=== PATIENT | female | born 1990 | race Two or more races ===

== ENCOUNTER 2019-05-27 06:16 | Inpatient (IN) | payer SELFPAY ==
[~2019-05-27] VITALS: Ht 160 cm; Wt 69.4 kg
--- NOTE | 2019-05-27 06:40 | NUR ---
PT BIBRA PER EMS PT STATES TAKING "TEQUILA SHOTS AND EATING ULISES IN THE BOX " PT ALTERED AND ANXIOUS.
--- NOTE | 2019-05-27 06:40 | NUR ---
AT THE BED SIDE
[2019-05-27] MEDS ORDERED: OLANZAPINE 5 MG TABLET ONE (06:51)
[2019-05-27] MEDS ORDERED: OLANZAPINE 5 MG TABLET PO ONE (07:00)
[2019-05-27 07:18] LABS: BASOPHILS % (AUTO) 0.5 % (0.0-2.0); EOSINOPHILS % (AUTO) 0.2 % (0.0-6.0); HEMATOCRIT 44 % (33-45); HEMOGLOBIN 14.5 g/dL (11.5-14.8); LYMPHOCYTES # (AUTO) 0.9 /CMM (0.8-4.8); LYMPHOCYTES % (AUTO) 19.7 % (20.0-44.0); MEAN CORPUSCULAR HGB CONC 33 g/dl (31.0-36.0); MEAN CORPUSCULAR VOLUME 96 fL (82-100); MONOCYTES # (AUTO) 0.2 /CMM (0.1-1.30); MONOCYTES % (AUTO) 4.7 % (2.0-12.0); NEUTROPHILS # (AUTO) 3.6 /CMM (1.8-8.9); NEUTROPHILS % (AUTO) 74.9 % (43.0-81.0); PLATELET COUNT (AUTO) 225 /CMM (150-450); RED BLOOD CELL COUNT(AUTO) 4.57 MIL/uL (4.0-5.2); WHITE BLOOD COUNT (AUTO) 4.8 K/uL (4.3-11.0)
[2019-05-27 07:24] LABS: CALCIUM, SERUM 9.8 mg/dL (8.5-10.1); CARBON DIOXIDE 21 mmol/L (21-32); CHLORIDE 99 mmol/L (98-107); CREATININE 0.9 mg/dL (0.6-1.3); GLUCOSE 151 mg/dL (74-106); SODIUM SERUM 136 mmol/L (136-145); UREA NITROGEN, BLOOD 13 mg/dL (7-18)
--- NOTE | 2019-05-27 07:28 | NUR ---
KIMBERLY COLLECTED AND SENT TO THE LAB
--- NOTE | 2019-05-27 07:30 | NUR ---
REPORT RECEIVED FROM BEAU STEPHENS FOR NARCISO
[2019-05-27 07:32] LABS: ALANINE AMINOTRANSFERASE 19 U/L (12-78); ALBUMIN 4.5 g/dL (3.4-5.0); ALKALINE PHOSPHATASE 71 U/L (46-116); ASPARTATE AMINOTRANSFERASE 25 U/L (15-37); BILIRUBIN,DIRECT 0.2 mg/dL (0.0-0.2); BILIRUBIN,TOTAL 0.9 mg/dL (0.2-1.0); TOTAL PROTEIN, SERUM 8.9 g/dL (6.4-8.2)
[2019-05-27 07:35] LABS: ACETAMINOPHEN 0 ug/ml (10-30); ALCOHOL, BLOOD < 3 mg/dL (0-0); SALICYLATE 0.5 mg/dL (2.8-20.0)
--- NOTE | 2019-05-27 07:42 | NUR ---
WITNESSED TONIC-CLONIC SEIZURE LASTED APPROXIMATELY 40SEC, MADE MD AWARE, SEIZURE PRECAUTION APPLIED.
[2019-05-27 07:51] LABS: APPEARANCE,URINE Clear (CLEAR); BILIRUBIN,URINE Negative (NEGATIVE); BLOOD, URINE Trace-intact Ery/uL (NEGATIVE); COLOR,URINE Yellow (YELLOW); KETONES,URINE 40 (NEGATIVE); LEUKOCYTE ESTERASE ,URINE Negative (NEGATIVE); NITRITE, URINE Negative (NEGATIVE); PH,URINE 8.5 (5.0-8.0); PROTEIN,URINE Negative (NEGATIVE); UGLUCOSE Negative (NEGATIVE); UROBILINOGEN,URINE 0.2 EU/dL (0.2)
[2019-05-27 07:53] LABS: BACTERIA,URINE Few /HPF (None Seen); SQUAMOUS EPITHELIAL CELL,UR Few /HPF (None Seen); WBC,URINE 0-2 /HPF (0-3)
[2019-05-27] MEDS ORDERED: LORAZEPAM INJ 2 MG/ML VIAL ONE (07:59)
[2019-05-27] MEDS ORDERED: HYDROCODONE/APAP 5/325MG 1 EACH TABLET PO ONE (08:00)
--- NOTE | 2019-05-27 08:05 | NUR ---
Pt bed assigned to 112-1 per House jesse Shook
[2019-05-27] MEDS ORDERED: LEVETIRACETAM (500MG) 500 MG in IV NS 0.9% 100 ML IV ONE (08:30)
--- NOTE | 2019-05-27 08:50 | NUR ---
REPORT GIVEN TO ADAM STEPHENS
--- NOTE | 2019-05-27 08:50 | NUR ---
TD/RN REPORT FROM ER REPORT GIVEN FROM ER NURSE MORTEZA FOR PT WITH PENDING DIAGNOSIS, UNDER THE CARE OF Rehan SEYMOUR NP. AWAITING FOR PT'S ADMITTING DIAGNOSIS AND ARRIVAL.
--- NOTE | 2019-05-27 09:20 | NUR ---
PANEL OIL LABORATORY ANALYST PAGED
[2019-05-27] MEDS ORDERED: LORAZEPAM INJ 2 MG/ML VIAL IV PRN (10:00)
[2019-05-27] MEDS ORDERED: MAGNESIUM HYDROXIDE 30 ML UDC PO PRN (10:00)
[2019-05-27] MEDS ORDERED: ACETAMINOPHEN 325 MG TABLET PO PRN (10:00)
[2019-05-27] MEDS ORDERED: MAG HYDROX/AL HYDROX/SIMETH 30 ML UDC PO PRN (10:00)
[2019-05-27] MEDS ORDERED: ONDANSETRON HCL/PF 4 MG/2 ML VIAL IVP PRN (10:00)
[2019-05-27] MEDS ORDERED: Z GUARD REMEDY 2 OZ OINT TP PRN (10:00)
--- NOTE | 2019-05-27 10:15 | NUR ---
TD/BUSINESS OPERATIONS COORDINATOR - ROOM 112#1 PT ARRIVED VIA GURNEY ACCOMPANIED BY ER NURSE AND WIND FARM ENGINEER. PT ALERT X 2-3 BUT NOTED WITH CONFUSION, SLEEPY BUT ABLE TO ENGAGED IN CONVERSATION. ON ROOM AIR SATURATING WELL @ 99%, RESPIRATIONS EVEN & UNLABORED, ON TELE WITH SINUS RHYTHM, HR 76. IV SITE FLUSHED PATENT, SL. SANTOS CATHETER INTACT, NOTED WITH CLEAR YELLOW URINE OUTPUT. BED RAIL PADDING IN PLACED, PT IS COMFORTABLE, ORIENTED TO HER SURROUNDINGS. PT REFUSED BED BATH. AWAITING FOR ORDERS. ADMITTING PROTOCOLS ON GOING, CL WITHIN REACHED AND SAFETY MAINTAINED. MONITORING CONTINUED.
[2019-05-27 12:00] VITALS: BP 145/80
[2019-05-27] MEDS: IV NS 0.9% 1,000 ML IV PRN (12:52)
[2019-05-27] MEDS: POTASSIUM CL. PREMIX PERIPHER. 50 ML IV SCH ×6 (12:52→23:42)
[2019-05-27] MEDS: ENOXAPARIN SODIUM 40 MG/0.4 ML DISP.SYRIN SQ SCH (12:53)
--- NOTE | 2019-05-27 13:00 | NUR ---
TD/RN MISSING BACKPACK PT WORRIED ABOUT HER BACKPACK NOT LISTED ON PERSONAL BELONGING INVENTORY LIST. CALLED ER TO FOLLOW-UP WITH EMT. PT MADE AWARE THAT ACTIVELY LOOKING FOR HER BACKPACK.
--- NOTE | 2019-05-27 14:30 | NUR ---
TD/RN MRI - BRAIN CONSENT FOR MRI BRAIN WITH & WITHOUT CONTRAST WAS OBTAINED FROM PT. BUT REFUSED PROCEDURE WHEN HEEL FINISHER CAME TO PICK-UP PT FOR THE SAID PROCEDURE. PRIMARY MD MADE AWARE.
[2019-05-27 16:00] VITALS: BP 133/76
--- NOTE | 2019-05-27 18:37 | NUR ---
TD/RN AFTERNOON ROUNDS PT REFUSED PM CARE. I HAVE AT LEAST 3 TIMES PICKED-UP HER PERSONAL BELONGINGS FROM THE FLOOR AND RETURNED IT IN THE PROPER PLACE. SHE IS VERY ALERT AT TIMES BUT CONFUSED WELL. RE-ORIENTED FREQUENTLY. FOLLOW COMMANDS, NOT COMBATIVE. NO CHANGE OF CONDITION. MONITORING CONTINUED.
--- NOTE | 2019-05-27 19:09 | NUR ---
TD/RN AM SHIFT CLOSING NOTES ALL NEEDS MET, NO ACUTE CHANGE OF CONDITION NOTED DURING THE SHIFT. PT ENDORSED TO PM NURSE TO CONTINUE CARE. CL WITHIN REACHED AND SAFETY MAINTAINED.
--- NOTE | 2019-05-27 19:20 | NUR ---
RN OPENING NOTE RECEIVED PT ALERT X 2-3 WITH PERIODS OF CONFUSION, PT IS DROWSY BUT EASILY AROUSABLE. PT NPO. ON ROOM AIR. RESPIRATIONS EVEN & UNLABORED, ON TELE WITH SINUS RHYTHM, HR 76. IV SITE FLUSHED AND PATENT. SANTOS CATHETER INTACT, NOTED WITH CLEAR YELLOW URINE OUTPUT. SEIZURE PRECAUTIONS IN PLACE, SIDE RAILS PADDED, PT IS COMFORTABLE, ORIENTED TO HER SURROUNDINGS. PT REFUSED PM CARE. CALL LIGHT WITHIN REACH, SAFETY MEASURES IMPLEMENTED, WILL MONITOR.
[2019-05-27 20:00] VITALS: BP 95/59
[2019-05-27] MEDS ORDERED: Thiamine 100 MG in IV D5W 50 ML IV SCH (20:00)
[2019-05-27] MEDS ORDERED: NICOTINE PATCH (7MG) 7 MG PATCH.TD24 TD SCH (21:00)
[2019-05-27] MEDS: LEVETIRACETAM (500MG) 500 MG in IV NS 0.9% 100 ML IV SCH (21:40)
--- NOTE | 2019-05-27 22:00 | NUR ---
RN NOTE PT REFUSED TO HAVE DVT PUMPS PUT ON DESPITE EXPLANATION OF RISKS AND ADVANTAGES.
[2019-05-28] VITALS: BP_SYST 100; BP_SYST 90; BP_DIAS 51; BP_DIAS 58
[2019-05-28 04:00] VITALS: BP 102/62
--- NOTE | 2019-05-28 05:46 | NUR ---
RN NOTE MISSING BACKPACK FOUND IN ER AND RETURNED TO PATIENT.
--- NOTE | 2019-05-28 06:49 | NUR ---
RN NOTE WINDMILL TECHNICIAN AT BEDSIDE READY TO DRAW AM LABS. PT REFUSED AT THIS TIME STATING THAT SHE DOES NOT WANT TO BE DISTURBED SO SHE CAN SLEEP AND REQUESTS FOR WINDMILL TECHNICIAN TO COME BACK LATER THIS MORNING "IN AN HOUR OR TWO." WILL ENDORSE TO MORNING SHIFT.
--- NOTE | 2019-05-28 07:30 | NUR ---
RN NOTES RECEIVED PT IN BED, AAO X 3 FORGETFUL, NOT IN ANY DISTRESS. SR TO SINUS TACH HR 110 ON MONITOR, DENIES ANY PAIN OR DISCOMFORT, WITH, LEFT WRIST G 22 AND RIGHT WRIST G22 IV ACCESS BOTH FLUSHES WELL, BOTH SITES CLEAR. ONGOING IVF NS AT 75 ML/HR. NO SKIN ISSUES. NPO FOR NOW. BED LOW LOCKED, SR UP X 2, CALL LIGHT WITHIN REACH, WILL MONITOR.
[2019-05-28 08:00] VITALS: BP 109/51
[2019-05-28] MEDS: LEVETIRACETAM (500MG) 500 MG in IV NS 0.9% 100 ML IV SCH (08:46)
[2019-05-28] MEDS: IV NS 0.9% 1,000 ML IV PRN (08:46)
[2019-05-28] MEDS ORDERED: NICOTINE PATCH (7MG) 7 MG PATCH.TD24 TD SCH (09:00)
[2019-05-28] MEDS ORDERED: MULTIPLE VIT (LYCOPENE/FA/MV,CA,IRON,MIN/LUT)1 TAB PO SCH (09:00)
[2019-05-28] MEDS ORDERED: PANTOPRAZOLE 40 MG VIAL IV SCH (09:00)
--- NOTE | 2019-05-28 09:30 | NUR ---
RN NOTES DUE MEDS GIVEN
[2019-05-28] MEDS: ENOXAPARIN SODIUM 40 MG/0.4 ML DISP.SYRIN SQ SCH (10:23)
--- NOTE | 2019-05-28 11:13 | NUR ---
Social service consult requested by MD for homelessness. Per MD notes and chart review, pt is a 28-year-old female, [place] in by paramedics [place]. The patient states she had 2 shots of tequila and felt sick after eating [id number]. STAVE AND BOLT EQUALIZER met with the pt bedside. STAVE AND BOLT EQUALIZER introduced self and purpose of the visit. Pt is alert and oriented x 4. Pt had a white paste on her face. Pt is cooperative and pleasant with STAVE AND BOLT EQUALIZER. Pt reports to live with family at [address] [place] [address], [address] in [place]. Pt reports she was on her way back [place] at the subway [place] and began feeling sick. Pt states, she is feeling much better. Pt reports, she drank a mini bottle of vodka and had taken her allergy medication. Pt denies drugs and cigarette use, however pt's UDS shows positive for methamphetamines. Pt did report to take allergy medication. Pt is currently not working and taking classes at [employer]. Pt denies any psychiatric diagnoses. Pt denies any SI/HI at this time. Pt states she will take the train back to [place]. Pt will require a TAP card upon discharge. STAVE AND BOLT EQUALIZER provided active listening and supportive counseling to the pt. STAVE AND BOLT EQUALIZER updated pt's KAT [place] and SENA JUN Gilmore with pt's discharge plan.
[2019-05-28 12:00] VITALS: BP 109/63
--- NOTE | 2019-05-28 12:58 | NUR ---
RN NOTES PATIENT SEEN BY DR. SOTELO NEUROLOGIST AND AMBROSIO QUINTANA TODAY. PATIENT REFUSED TO HAVE MRI DONE AND FURTHER TREATMENTS. PATIENT STATED SHE HAS AN EVENT TO ATTEND THIS AFTERNOON AND WANT TO GO. DISCUSSED WITH PATIENT THE RISK AND BENEFITS OF GOING AGAINST [facility]. BUT PATIENT STILL INSISTED TO GO. PROVIDED DC INSTRUCTION AND HEALTH TEACHINGS AND ADVISED TO FOLLOW UP WITH PCP ANGELA. ALL BELONGINGS CHECKED AND ALL PAPER WORKS SIGNED. ACCOMPANIED BY DAMIAN QUEZADA TO LOBBY AND WILL TAKE BUS TO GO HOME. Addendum: 05/28/19 at 1407 by ELAINE ROSALES RN ADDENDUM: ALL IV ACCESS REMOVED. PRESSURE APPLIED, NO BLEEDING DRESSING APPLIED BY BASIM JORGESNEN. SANTOS CATHETER REMOVED BY BASIM JORGENSEN WITH 400 ML OUTPUT.
[2019-05-28 13:00] LABS: BASOPHILS % (AUTO) 0.3 % (0.0-2.0); EOSINOPHILS % (AUTO) 0.3 % (0.0-6.0); HEMATOCRIT 42 % (33-45); HEMOGLOBIN 13.5 g/dL (11.5-14.8); LYMPHOCYTES # (AUTO) 1.6 /CMM (0.8-4.8); LYMPHOCYTES % (AUTO) 28.3 % (20.0-44.0); MEAN CORPUSCULAR HGB CONC 32 g/dl (31.0-36.0); MEAN CORPUSCULAR VOLUME 97 fL (82-100); MONOCYTES # (AUTO) 0.4 /CMM (0.1-1.30); MONOCYTES % (AUTO) 7.7 % (2.0-12.0); NEUTROPHILS # (AUTO) 3.6 /CMM (1.8-8.9); NEUTROPHILS % (AUTO) 63.4 % (43.0-81.0); PLATELET COUNT (AUTO) 215 /CMM (150-450); WHITE BLOOD COUNT (AUTO) 5.7 K/uL (4.3-11.0)
[2019-05-28 13:19] LABS: CALCIUM, SERUM 8.5 mg/dL (8.5-10.1); CREATININE 0.9 mg/dL (0.6-1.3); MAGNESIUM 1.8 mg/dL (1.8-2.4); PHOSPHORUS 2.4 mg/dL (2.5-4.9); POTASSIUM 3.1 mmol/L (3.5-5.1)
[2019-05-28 13:31] LABS: THYROID STIMULATING HORMONE 10.978 uIU/mL (0.358-3.74)
--- NOTE | 2019-05-28 20:02 | NUR ---
RN NOTES INCIDENT REPORT ON FILE Unique Id: [id number]
== END 2019-05-28 13:00 | disposition left against medical advice (07) | DRG 917 ==
LOC: ER 06:16 → TELE-TD 08:28
PROVIDERS: ADMIT Registered Nurse; ATTEND Registered Nurse
DX: T43.621A Poisoning by amphetamines, accidental (unintentional), initial encounter (principal); G92 Toxic encephalopathy; F41.9 Anxiety disorder, unspecified; F17.200 Nicotine dependence, unspecified, uncomplicated; E66.9 Obesity, unspecified; Z59.0 Homelessness; Y92.89 Other specified places as the place of occurrence of the external cause; G40.409 Other generalized epilepsy and epileptic syndromes, not intractable, without status epilepticus; F15.90 Other stimulant use, unspecified, uncomplicated; Z91.19 Patient's noncompliance with other medical treatment and regimen; Y92.9 Unspecified place or not applicable
CPT/HCPCS: 36415; 70450-TC; 80048-TC; 80061-TC; 80076-TC; 80305; 81000-TC; 83735-TC; 84100-TC; 84443-TC; 84703-TC; 85025-TC; 87081-TC; C9113; G0378; G0480; J1650; J1953; J2060; J3411; J3480; J7030; J7060